=== PATIENT | male | born 1930 | race Caucasian/White ===

== ENCOUNTER 2018-08-04 15:08 | Emergency (ER) | payer MEDICARE, BC ==
[~2018-08-04] VITALS: Ht 162.6 cm; Wt 77.1 kg
[2018-08-04] MEDS ORDERED: TRAZODONE (15:17)
[2018-08-04] MEDS ORDERED: SERTRALINE (15:17)
[2018-08-04] MEDS ORDERED: DEPAKOTE (15:17)
[2018-08-04] MEDS ORDERED: SIMVASTATIN (15:17)
[2018-08-04] MEDS ORDERED: LIDOCAINE 1%-EPI 1:100,000 20 ML VIAL TP ONE (15:30)
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
--- NOTE | 2018-08-04 17:32 | NUR ---
Patient discharged to home in stable conditon. Written and verbal after care instructions given. Patient verbalizes understanding of instructions. ALL BELONGINGS W/ PT. PT SELF-AMBULATED W/O DIFFICULTY.
[2018-08-04 17:33] VITALS: BP 116/62
== END 2018-08-04 17:34 | disposition home or self-care (01) ==
LOC: ER 15:08
DX: S01.111A Laceration without foreign body of right eyelid and periocular area, initial encounter (principal); E78.5 Hyperlipidemia, unspecified; Z95.0 Presence of cardiac pacemaker; Z79.899 Other long term (current) drug therapy; W01.198A Fall on same level from slipping, tripping and stumbling with subsequent striking against other object, initial encounter; Y93.89 Activity, other specified; Y92.89 Other specified places as the place of occurrence of the external cause; Y99.8 Other external cause status
CPT/HCPCS: 12011; 70450; 72125; 99284; J3490; A4217; A4663

== ENCOUNTER 2020-08-23 16:19 | Inpatient (IN) | payer MEDICARE, BC ==
[~2020-08-23] VITALS: Ht 167.6 cm; Wt 68.0 kg
[~2020-08-23 16:19] MED LIST: DEPAKOTE PO; SERTRALINE PO; SIMVASTATIN; TRAZODONE
--- NOTE | 2020-08-23 16:40 | NUR ---
No information about current home medications available.
[2020-08-23 16:57] LABS: BASOPHILS % (AUTO) 0.4 % (0.0-2.0); EOSINOPHILS % (AUTO) 0.4 % (0.0-7.0); HEMATOCRIT 29.5 % (36.7-47.1); HEMOGLOBIN 9.8 g/dL (12.5-16.3); LYMPHOCYTES # (AUTO) 1.2 K/uL (20.0-40.0); MEAN CORPUSCULAR HEMOGLOBIN 34.7 uug (23.8-33.4); MEAN CORPUSCULAR HGB CONC 33 g/dL (32.5-36.3); MEAN CORPUSCULAR VOLUME 104.6 fL (73.0-96.2); MONOCYTES # (AUTO) 0.6 K/uL (2.0-10.0); MONOCYTES % (AUTO) 7.8 % (0.0-11.0); NEUTROPHILS # (AUTO) 6.1 K/uL (1.8-8.9); NEUTROPHILS % (AUTO) 76.4 % (38.5-71.5); PLATELET COUNT (AUTO) 146 K/uL (152-348); RED BLOOD CELL COUNT(AUTO) 2.82 MIL/uL (4.06-5.63)
[2020-08-23 17:06] LABS: CARBON DIOXIDE 27 mmol/L (21-32); CHLORIDE 105 mmol/L (98-107); CREATININE 1.2 mg/dL (0.6-1.3); GLUCOSE 90 mg/dL (74-106); POTASSIUM 4.2 mmol/L (3.5-5.1); UREA NITROGEN, BLOOD 39 mg/dL (7-18)
[2020-08-23 17:12] LABS: ALANINE AMINOTRANSFERASE 14 U/L (16-63); ALKALINE PHOSPHATASE 46 U/L (50-136); ASPARTATE AMINOTRANSFERASE 20 U/L (15-37); BILIRUBIN,DIRECT 0.1 mg/dL (0.0-0.2); BILIRUBIN,TOTAL 0.5 mg/dL (0.2-1.0); CREATINE KINASE, TOTAL 100 U/L (39-308); TOTAL PROTEIN, SERUM 7.4 g/dL (6.4-8.2)
[2020-08-23 17:13] LABS: ACETAMINOPHEN < 2.0 ug/mL (10-30)
[2020-08-23 17:16] LABS: THYROID STIMULATING HORMONE 3.567 mIU/mL (0.358-3.740)
[2020-08-23 17:17] LABS: ETHANOL < 3 MG/DL (0-0)
--- NOTE | 2020-08-23 18:52 | NUR ---
urine sent to Lab
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
[2020-08-23 19:18] LABS: *BILIRUBIN,URIN NEGATIVE (NEGATIVE); *BLOOD, URINE NEGATIVE (NEGATIVE); *CLARITY,URINE CLEAR (CLEAR); *COLOR,URINE YELLOW (YELLOW); *KETONES,URINE 1+ (NEGATIVE); *UROBILINOGEN,URINE 0.2 E.U./dl (NORMAL); LEUKOCYTE ESTERASE ,URINE NEGATIVE (NEGATIVE); NITRITE, URINE NEGATIVE (NEGATIVE); PH,URINE 5.5 (5.0-8.0); UGLUCOSE NEGATIVE (NEGATIVE)
[2020-08-23 19:28] LABS: *AMPHETAMINE, URINE NEGATIVE (NEGATIVE); *CANNABINOID, URINE NEGATIVE (NEGATIVE); *COCCAINE, URINE NEGATIVE (NEGATIVE); *OPIATE, URINE POSITIVE (NEGATIVE); *PHENCYCLIDINE SCREEN,URINE NEGATIVE (NEGATIVE)
[2020-08-23 19:29] LABS: BACTERIA,URINE NONE SEEN /HPF (NONE SEEN); RBC,URINE 0-3 /HPF (0-3); SQUAMOUS EPITHELIAL CELL,UR NONE SEEN /HPF (NONE SEEN)
--- NOTE | 2020-08-23 19:30 | NUR ---
First call made to give report
[2020-08-23] MEDS ORDERED: MAG HYDROX/AL HYDROX/SIMETH 30 ML LIQUID UDC PO PRN (20:45)
[2020-08-23] MEDS ORDERED: ACETAMINOPHEN 325 MG TABLET PO PRN (20:45)
[2020-08-23] MEDS ORDERED: BLOOD SUGAR DIAGNOSTIC 1 EACH STRIP VI ONE (20:45)
[2020-08-23] MEDS ORDERED: ZOLPIDEM 5 MG TABLET PO PRN (20:45)
[2020-08-23] MEDS ORDERED: MAGNESIUM HYDROXIDE 30 ML LIQUID UDC PO PRN (20:45)
[2020-08-23] MEDS ORDERED: QUETIAPINE FUMARATE 25 MG TABLET PO PRN (20:45)
--- NOTE | 2020-08-23 20:46 | NUR ---
Patient transferred to Room 137-B via gurney in stable condition under the care of Nurse Cary. Belongings with patient. Record given.
[2020-08-23 20:54] VITALS: BP 152/58
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
[2020-08-23] MEDS ORDERED: LEVO50TA8 PO (22:12)
[2020-08-23] MEDS ORDERED: TAMS-3 PO (22:12)
[2020-08-23] MEDS ORDERED: HYDR-3972 PO (22:12)
[2020-08-24 07:30] VITALS: BP 155/66
[2020-08-24] MEDS ORDERED: LEVOTHYROXINE SODIUM 50 MCG TABLET PO SCH (07:30)
[2020-08-24 15:32] VITALS: BP 173/79
[2020-08-24] MEDS: HYDROCODONE/APAP 5-325MG TABLET PO PRN (15:56)
[2020-08-24 18:17] VITALS: BP 124/81
[2020-08-24 19:55] VITALS: BP 149/62
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
[2020-08-24] MEDS: MELATONIN 3 MG TABLET PO SCH (21:23)
[2020-08-24] MEDS: TAMSULOSIN HCL 0.4 MG CAP.SR.24H PO SCH (21:23)
[2020-08-24] MEDS: LORAZEPAM 1 MG TABLET PO PRN (23:18)
[2020-08-25] MEDS: LEVOTHYROXINE SODIUM 50 MCG TABLET PO SCH (06:18)
--- NOTE | 2020-08-25 07:00 | NUR ---
pt slept for approx 6 hrs through the night. will continue to monitor.
[2020-08-25 07:30] VITALS: BP 157/84
[2020-08-25] MEDS: SERTRALINE HCL 50 MG TABLET PO SCH (08:32)
[2020-08-25] MEDS: HYDROCODONE/APAP 5-325MG TABLET PO PRN (14:31)
[2020-08-25 15:02] VITALS: BP 161/73
--- NOTE | 2020-08-25 15:18 | NUR ---
KRYSTA Initial Discharge Plan: Patient currently resides at home [address], [place] [address], however he was recently discharged from [facility] [address] [place] [address] ([phone]) where he was for 3 months. Patient would like to return to [facility] if possible or to a new SNF placement. KRYSTA will continue to work with patient and MD to ensure a safe and proper discharge plan.
--- NOTE | 2020-08-25 15:20 | NUR ---
Firearms Report: Internal Medicine Physician Assistant completed and submitted a DOJ firearms report for 5150 grave disability and danger to self certifications. A copy of report has been placed in patient chart.
--- NOTE | 2020-08-25 15:21 | NUR ---
KRYSTA Neighbor Contact: KRYSTA spoke with patient's neighbor, Hector Campa ([phone]) who provided collateral information. Hector stated that he has known the patient for several years and has been helping the patient with various things such as buying him food and taking him to his doctor's appointments. Hector stated that recently the patient was in [facility] and he his house is no longer in a livable state.
--- NOTE | 2020-08-25 15:26 | NUR ---
KRYSTA SMART Team Contact: KRYSTA spoke with Malena ([phone]) clinician from the SMART team [employer] who was requested a confirmation of the DOJ firearms report being filed. This SW stated that we filed it and it is up in their system.
--- NOTE | 2020-08-25 15:31 | NUR ---
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
[2020-08-25 18:57] VITALS: BP 147/79
[2020-08-25 20:08] VITALS: BP 144/72
[2020-08-25] MEDS: TAMSULOSIN HCL 0.4 MG CAP.SR.24H PO SCH (20:26)
[2020-08-25] MEDS: MELATONIN 3 MG TABLET PO SCH (20:26)
[2020-08-26] MEDS: HYDROCODONE/APAP 5-325MG TABLET PO PRN ×2 (02:14→19:32)
[2020-08-26] MEDS: LEVOTHYROXINE SODIUM 50 MCG TABLET PO SCH (06:24)
[2020-08-26 07:30] VITALS: BP 146/63
[2020-08-26] MEDS: SERTRALINE HCL 50 MG TABLET PO SCH (08:20)
--- NOTE | 2020-08-26 09:04 | NUR ---
KRYSTA Individual Counseling: SW met with patient today to provide brief individual counseling and address patient's presenting problem of suicidal ideation. SW helped patient gain insight into his presenting problem and assessed patient's level of suicidality. Patient minimized his suicidal ideation with plan and intent upon admission. Patient states "Oh I just said something very stupid". Patient presents calm and cooperative. Patient appears somewhat disorganized and repetitive with his questions. SW oriented patient to reality and helped patient accept his present reality. SW will continue to remain available for patient for ongoing support.
[2020-08-26] MEDS: MUPIROCIN 2% OINT 22 GM TUBE NS SCH ×2 (09:48→20:18)
[2020-08-26 15:22] VITALS: BP 134/67
[2020-08-26 20:00] VITALS: BP 150/62
[2020-08-26] MEDS: TAMSULOSIN HCL 0.4 MG CAP.SR.24H PO SCH (20:17)
[2020-08-26] MEDS: MELATONIN 3 MG TABLET PO SCH (20:18)
[2020-08-27] MEDS: HYDROCODONE/APAP 5-325MG TABLET PO PRN (05:11)
[2020-08-27] MEDS: LEVOTHYROXINE SODIUM 50 MCG TABLET PO SCH (06:03)
[2020-08-27 07:20] LABS: BASOPHILS % (AUTO) 0.6 % (0.0-2.0); EOSINOPHILS # (AUTO) 0.1 K/uL (0.0-0.7); EOSINOPHILS % (AUTO) 1.7 % (0.0-7.0); HEMATOCRIT 30.8 % (36.7-47.1); HEMOGLOBIN 10.2 g/dL (12.5-16.3); LYMPHOCYTES # (AUTO) 1.5 K/uL (20.0-40.0); LYMPHOCYTES % (AUTO) 19.3 % (20.5-51.5); MEAN CORPUSCULAR HEMOGLOBIN 34.6 uug (23.8-33.4); MEAN CORPUSCULAR HGB CONC 33 g/dL (32.5-36.3); MEAN CORPUSCULAR VOLUME 104.6 fL (73.0-96.2); MONOCYTES # (AUTO) 0.6 K/uL (2.0-10.0); MONOCYTES % (AUTO) 7.6 % (0.0-11.0); NEUTROPHILS # (AUTO) 5.5 K/uL (1.8-8.9); NEUTROPHILS % (AUTO) 70.8 % (38.5-71.5); PLATELET COUNT (AUTO) 141 K/uL (152-348); RED BLOOD CELL COUNT(AUTO) 2.95 MIL/uL (4.06-5.63); WHITE BLOOD COUNT (AUTO) 7.8 K/uL (3.6-10.2)
[2020-08-27 07:30] VITALS: BP 148/78
--- NOTE | 2020-08-27 07:30 | NUR ---
Received report from OMAR Manjarrez. All questions, comments, and concerns were addressed. Received patient resting quietly in his assigned bed, bed is in low and locked position.
[2020-08-27] MEDS: SERTRALINE HCL 50 MG TABLET PO SCH (08:50)
[2020-08-27] MEDS: MUPIROCIN 2% OINT 22 GM TUBE NS SCH ×2 (08:56→20:19)
[2020-08-27 09:09] LABS: CREATININE 1.2 mg/dL (0.6-1.3); MAGNESIUM 2.2 mg/dL (1.8-2.4); PHOSPHOROUS 3.6 mg/dL (2.5-4.9); POTASSIUM 4.1 mmol/L (3.5-5.1)
--- NOTE | 2020-08-27 10:56 | NUR ---
patient is alert and oriented x3. he is needy, intrusive, and has poor boundaries with staff and other patients, but is redirectable with reality orientation and redirection. patient is adherent with medication, no adverse reaction noted. patient denies SI/HI, denies AH/VH. he is preoccupied and paranoid with his room mate. patient is able to tolerate food and fluids. able to ambulate independently with a front wheel walker and perform self care and ADL's. patient is encouraged to participate in the unit therapeutic milieu and groups. educated about impulse control.
--- NOTE | 2020-08-27 13:10 | NUR ---
KRYSTA SNF Referral: KRYSTA faxed patient's referral packet for review and placement at [facility] (fax: [phone]) attention to Mimi Nathan. Addendum: 08/28/20 at 1201 by JERSON JUAN Patient did not get accepted to facility for placement.
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
--- NOTE | 2020-08-27 15:41 | NUR ---
KRYSTA APS Contact: SW contacted APS medical social consultant Jodi Lugo ([phone]) and left a voicemail to call this inspector automatic typewriter back to discuss patient's case.
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
[2020-08-27 16:25] VITALS: BP 111/67
--- NOTE | 2020-08-27 18:41 | NUR ---
patient is intrusive, needy, and inappropriately focused on his financial matters. he believes that he will be evicted from his home and all his money and assets taken away while he is on this unit. patient provided with reality orientation and redirection. provided with education about coping mechanisms for anxiety.
[2020-08-27] MEDS: MELATONIN 3 MG TABLET PO SCH (20:19)
[2020-08-27] MEDS: TAMSULOSIN HCL 0.4 MG CAP.SR.24H PO SCH (20:19)
[2020-08-27 20:23] VITALS: BP 109/52
[2020-08-28] MEDS: LEVOTHYROXINE SODIUM 50 MCG TABLET PO SCH (06:04)
--- NOTE | 2020-08-28 06:33 | NUR ---
GPS: Pt.slept for 3.15 last night. Remains anxious,needy and easily irritable. Safe environment provided. Re-assured prn. Will continue to monitor.
[2020-08-28 07:30] VITALS: BP 149/86
[2020-08-28] MEDS: SERTRALINE HCL 50 MG TABLET PO SCH (09:13)
[2020-08-28] MEDS: MUPIROCIN 2% OINT 22 GM TUBE NS SCH ×2 (09:15→20:18)
--- NOTE | 2020-08-28 12:02 | NUR ---
KRYSTA SNF Referral: KRYSTA faxed patient's referral packet for review and placement at [facility] attention to Silvia (fax: [phone]) Addendum: 08/28/20 at 1318 by JERSON JUAN Patient is accepted for placement.
[2020-08-28] MEDS: HYDROCODONE/APAP 5-325MG TABLET PO PRN (12:22)
[2020-08-28 16:00] VITALS: BP 109/68
[2020-08-28] MEDS: MELATONIN 3 MG TABLET PO SCH (20:18)
[2020-08-28] MEDS: QUETIAPINE FUMARATE 25 MG TABLET PO SCH (20:18)
[2020-08-28] MEDS: TAMSULOSIN HCL 0.4 MG CAP.SR.24H PO SCH (20:18)
[2020-08-28 20:20] VITALS: BP 104/52
[2020-08-29] MEDS: LEVOTHYROXINE SODIUM 50 MCG TABLET PO SCH (06:05)
[2020-08-29 07:30] VITALS: BP 143/74
[2020-08-29] MEDS: SERTRALINE HCL 50 MG TABLET PO SCH (09:15)
[2020-08-29] MEDS: MUPIROCIN 2% OINT 22 GM TUBE NS SCH ×2 (09:21→20:37)
--- NOTE | 2020-08-29 10:38 | NUR ---
KRYSTA PC Hearing: Patient had 5250 probable cause hearing today and it was upheld for grave disability.
[2020-08-29 16:32] VITALS: BP 144/77
[2020-08-29 20:04] VITALS: BP 136/76
[2020-08-29] MEDS: QUETIAPINE FUMARATE 25 MG TABLET PO SCH (20:36)
[2020-08-29] MEDS: MELATONIN 3 MG TABLET PO SCH (20:36)
[2020-08-29] MEDS: TAMSULOSIN HCL 0.4 MG CAP.SR.24H PO SCH (20:36)
[2020-08-29] MEDS: HYDROCODONE/APAP 5-325MG TABLET PO PRN (21:36)
[2020-08-30] MEDS: LEVOTHYROXINE SODIUM 50 MCG TABLET PO SCH (06:18)
[2020-08-30] MEDS: HYDROCODONE/APAP 5-325MG TABLET PO PRN ×3 (06:19→22:15)
--- NOTE | 2020-08-30 06:29 | NUR ---
PATIENT ALERT ORIENTED, HAS EPISODE OF COMPLAINING OF PAIN ON ADITHYA LEG, MEDICATED ORDERED. PATIENT COOPERATIVE WITH MEDICATIONS AND HAD SHOWER TODAY. PATIENT HAS EPISODE OF NEEDY BEHAVIOR, ATTEND ALL NEEDS.
[2020-08-30 07:30] VITALS: BP 130/61
[2020-08-30] MEDS: SERTRALINE HCL 50 MG TABLET PO SCH (09:43)
[2020-08-30] MEDS: MUPIROCIN 2% OINT 22 GM TUBE NS SCH ×2 (09:47→20:32)
[2020-08-30 11:36] LABS: BASOPHILS # (AUTO) 0.1 K/uL (0.0-8.0); BASOPHILS % (AUTO) 1.4 % (0.0-2.0); EOSINOPHILS # (AUTO) 0.1 K/uL (0.0-0.7); EOSINOPHILS % (AUTO) 2.1 % (0.0-7.0); HEMATOCRIT 31.3 % (36.7-47.1); HEMOGLOBIN 10.6 g/dL (12.5-16.3); LYMPHOCYTES # (AUTO) 1.7 K/uL (20.0-40.0); LYMPHOCYTES % (AUTO) 26.8 % (20.5-51.5); MEAN CORPUSCULAR HEMOGLOBIN 35.5 uug (23.8-33.4); MEAN CORPUSCULAR HGB CONC 34 g/dL (32.5-36.3); MEAN CORPUSCULAR VOLUME 105.1 fL (73.0-96.2); MONOCYTES # (AUTO) 0.7 K/uL (2.0-10.0); MONOCYTES % (AUTO) 10.2 % (0.0-11.0); NEUTROPHILS # (AUTO) 3.8 K/uL (1.8-8.9); NEUTROPHILS % (AUTO) 59.5 % (38.5-71.5); RED BLOOD CELL COUNT(AUTO) 2.98 MIL/uL (4.06-5.63); WHITE BLOOD COUNT (AUTO) 6.4 K/uL (3.6-10.2)
[2020-08-30 11:48] LABS: ALANINE AMINOTRANSFERASE 23 U/L (16-63); ALKALINE PHOSPHATASE 56 U/L (50-136); ASPARTATE AMINOTRANSFERASE 20 U/L (15-37); BILIRUBIN,TOTAL 0.3 mg/dL (0.2-1.0); CARBON DIOXIDE 28 mmol/L (21-32); CHLORIDE 101 mmol/L (98-107); CREATININE 1.5 mg/dL (0.6-1.3); GLUCOSE 115 mg/dL (74-106); MAGNESIUM 2.3 mg/dL (1.8-2.4); POTASSIUM 4.4 mmol/L (3.5-5.1); TOTAL PROTEIN, SERUM 8.2 g/dL (6.4-8.2); UREA NITROGEN, BLOOD 59 mg/dL (7-18)
[2020-08-30 12:13] LABS: PLATELET COUNT (AUTO) 231 K/uL (152-348)
--- NOTE | 2020-08-30 13:00 | NUR ---
Gps/tip out worker-Came out of his room, diaper w/ his diaper falling down, assisted to the bathroom , removed diaper, c/o . constipation, no bm for 3 days per patient, MOM 30 ml given po, as well as prune juice x 2 give. tried to review w/ patient pain meds. can give constipation, patient does not want to listen, kept talking out loud, not given staff chance to talk . Patient jumping from one topic to another, gets angry and irritable when being redirected. Easily gets anxious, argumentative, too focus in his urination, urgency,frequency, and incontinence noted. , assisted with his hygiene
[2020-08-30 14:37] LABS: *BILIRUBIN,URIN NEGATIVE (NEGATIVE); *BLOOD, URINE NEGATIVE (NEGATIVE); *CLARITY,URINE CLEAR (CLEAR); *COLOR,URINE YELLOW (YELLOW); *KETONES,URINE NEGATIVE (NEGATIVE); *UROBILINOGEN,URINE 0.2 E.U./dl (NORMAL); LEUKOCYTE ESTERASE ,URINE NEGATIVE (NEGATIVE); NITRITE, URINE NEGATIVE (NEGATIVE); UGLUCOSE NEGATIVE (NEGATIVE)
[2020-08-30] MEDS ORDERED: BISACODYL 10 MG SUPP.RECT RC PRN (15:00)
[2020-08-30 16:00] VITALS: BP 156/91
--- NOTE | 2020-08-30 18:03 | NUR ---
Gps/Delivery Professional- stayed in the dinning room during lunch , interacting fairly with his peers. , claimed he's feeling a lot better. remains with freq. voiding, and urgency, urinal placed with in reach when in bed. Adequate relief from his pain. Had Bowel movement , resulted from MOM 30 ml this pm. Adequate fluid intake.
[2020-08-30 20:11] VITALS: BP 108/65
[2020-08-30] MEDS: MELATONIN 3 MG TABLET PO SCH (20:32)
[2020-08-30] MEDS: TAMSULOSIN HCL 0.4 MG CAP.SR.24H PO SCH (20:32)
[2020-08-30] MEDS: QUETIAPINE FUMARATE 25 MG TABLET PO SCH (20:32)
[2020-08-30] MEDS: LORAZEPAM 1 MG TABLET PO PRN (22:15)
--- NOTE | 2020-08-31 02:50 | NUR ---
STAFF HEARD LOUD SOUND AND CAME TO SEE PT ON TOP OF THE BATHROOM DOOR WHICH IS HELD ON BY MAGNET AND MADE OF FOAM. FORTUNATELY HE LANDED ON HIS BOTTOM AND ON TOP OF THE SOFT FOAM PORTION OF THE DOOR AND HAD NO COMPLAINTS OF PAIN POST FALL. WITH ASSISTANCE PT WAS HELPED BACK TO BED AND INSTRUCTED TO USE URINAL WHEN NEEDING TO VOID. BEDLOCKED AND IN LOWEST POSITION. BED ALARM IS ON AND ACTIVATED. TOOK VITAL SIGNS AND ARE STABLE. PT IN NO ACUTE DISTRESS. WILL NOTIFY DR MANAGER SUPPLY CHAIN. STNA AWARE. WILL CONTINUE TO MONITOR FOR SAFETY.
--- NOTE | 2020-08-31 02:51 | NUR ---
DID HEAD TO TOE ASSESSMENT ON THE PT . DID NEUROCHECKS. LEVEL OF CONSCIOUSNESS IS THE SAME. PUPILS REACTIVE. PT ORIENTED TO NAME AND PLACE. SPEECH IS NORMAL. NORMAL MOTOR, SENSORY AND DEEP TENDON REFLEX. WILL CONTINUE TO MONITOR.
[2020-08-31 02:52] VITALS: BP 150/76
--- NOTE | 2020-08-31 02:53 | NUR ---
CALLED [facility] FOR DR AIRCRAFT MAINTENANCE DIRECTOR TO NOTIFY PT FELL. AWAITING FOR CALL BACK.
[2020-08-31] MEDS: LEVOTHYROXINE SODIUM 50 MCG TABLET PO SCH (06:02)
--- NOTE | 2020-08-31 06:26 | NUR ---
DR SPENCE NOTIFIED REGARDING FALL OF THE PT. ORDERED TO MONITOR THE PT. DO NEUROCHECKS. IF ANY ABNORMAL SIGNS DO CTA. CHARGE NURSE AWARE. WILL ENDORSE TO INCOMING NURSE.
--- NOTE | 2020-08-31 06:32 | NUR ---
PT SLEPT 4.30 H. PT IN NO ACUTE DISTRESS. PT VITAL SIGNS STABLE. PRESCRIBED MEDICATION GIVEN AND PT TOLERATED IT WELL.PT GIVEN NORCO AT 2215H FOR PAIN AND ATIVAN AT 2215H FOR AGITATION AND RESTLESSNESS. PT TOLERATED IT WELL. AFTER AN HOUR PT IS CALMER AND RESTING ON HIS BED. PT HAD EPISODES OF CONFUSION AND NEEDS REORIENTATION AND REDIRECTION. AT 0250H PT FELL. UNWITNESS FALL. CEMENT CRUSHER OPERATOR NOTIFIED. DID NEUROCHECK ON THE PT. PT RESPOSIVE AND STABLE. POSTFALL PROTOCOL OBSERVED. SAFETY AND COMFORT PROVIDED. ALL NEEDS ARE MET. WILL ENDORSE TO INCOMING NURSE FOR CONTINUITY OF CARE.
[2020-08-31 07:30] VITALS: BP 130/73
[2020-08-31] MEDS: MUPIROCIN 2% OINT 22 GM TUBE NS SCH ×2 (10:34→21:09)
[2020-08-31] MEDS: SERTRALINE HCL 50 MG TABLET PO SCH (10:34)
[2020-08-31 16:00] VITALS: BP 134/74
[2020-08-31 19:59] VITALS: BP 115/65
[2020-08-31] MEDS: QUETIAPINE FUMARATE 25 MG TABLET PO SCH (20:19)
[2020-08-31] MEDS: MELATONIN 3 MG TABLET PO SCH (20:19)
[2020-08-31] MEDS: TAMSULOSIN HCL 0.4 MG CAP.SR.24H PO SCH (20:19)
[2020-08-31] MEDS: HYDROCODONE/APAP 5-325MG TABLET PO PRN (21:08)
[2020-09-01] MEDS: HYDROCODONE/APAP 5-325MG TABLET PO PRN (06:19)
[2020-09-01] MEDS: LEVOTHYROXINE SODIUM 50 MCG TABLET PO SCH (06:19)
--- NOTE | 2020-09-01 07:06 | NUR ---
PATIENT ALERT STAY IN HIS ROOM MOST OF THE NIGHT, CONT ON PAIN MANAGEMENT DUE R LEG PAIN/CRAMPS. PATIENT SLEPT 2 HRS, USES URINAL AND GOES TO BATHROOM FOR BLADDER ELIMINATION. PATIENT WET HIS BED, REFUSED TO WEAR DIAPER, WILL CONT TO ASSIST WITH TOILETING, KEPT CLEAN AND DRY.
[2020-09-01 07:47] LABS: CARBON DIOXIDE 26 mmol/L (21-32); CHLORIDE 104 mmol/L (98-107); CREATININE 1.4 mg/dL (0.6-1.3); GLUCOSE 93 mg/dL (74-106); MAGNESIUM 2.4 mg/dL (1.8-2.4); PHOSPHOROUS 4.1 mg/dL (2.5-4.9); POTASSIUM 4.5 mmol/L (3.5-5.1); UREA NITROGEN, BLOOD 55 mg/dL (7-18)
[2020-09-01] MEDS ORDERED: MELATONIN 3 MG TABLET PO PRN (08:45)
[2020-09-01] MEDS: MUPIROCIN 2% OINT 22 GM TUBE NS SCH ×2 (09:29→20:27)
[2020-09-01] MEDS: SERTRALINE HCL 50 MG TABLET PO SCH (09:29)
[2020-09-01 15:43] VITALS: BP 139/72
[2020-09-01 19:30] VITALS: BP 103/63
[2020-09-01] MEDS: QUETIAPINE FUMARATE 25 MG TABLET PO SCH (20:27)
[2020-09-01] MEDS: TAMSULOSIN HCL 0.4 MG CAP.SR.24H PO SCH (20:27)
[2020-09-01] MEDS: DIVALPROEX ER 500 MG TAB.SR.24H PO SCH (20:28)
[2020-09-02] MEDS: LORAZEPAM 1 MG TABLET PO PRN (02:22)
--- NOTE | 2020-09-02 05:39 | NUR ---
Shift End Report: Slept 4.30 hours. Awakened at 0222, kind of agitated, uncooperative, trying to get out of bed. Placed in Frieda chair and stayed in the [address] the rest of the shift after giving Ativan medication which is very effective. No significant event reported all night. Continue care as planned.VS stable.
[2020-09-02] MEDS: LEVOTHYROXINE SODIUM 50 MCG TABLET PO SCH (06:06)
[2020-09-02 07:30] VITALS: BP 138/83
--- NOTE | 2020-09-02 07:30 | NUR ---
Patient received in Frieda chair in the hallway. Patient is calm and cooperative. No distress noted. Patient denies any SI/GLASGOW at this time. Safety and suicide precautions are in place. Will continue to monitor.
[2020-09-02] MEDS: SERTRALINE HCL 50 MG TABLET PO SCH (08:24)
[2020-09-02 15:22] VITALS: BP 109/59
--- NOTE | 2020-09-02 18:18 | NUR ---
Patient has been very calm and cooperative throughout shift. Patient has been compliant with medications. At times he is forgetful. No SI/GLASGOW reported. Safety precautions are in place. Will endorse to next shift.
[2020-09-02 20:07] VITALS: BP 128/64
[2020-09-02] MEDS: DIVALPROEX ER 500 MG TAB.SR.24H PO SCH (20:41)
[2020-09-02] MEDS: TAMSULOSIN HCL 0.4 MG CAP.SR.24H PO SCH (20:41)
[2020-09-02] MEDS: QUETIAPINE FUMARATE 25 MG TABLET PO SCH (20:42)
[2020-09-03 00:22] LABS: *BILIRUBIN,URIN NEGATIVE (NEGATIVE); *BLOOD, URINE NEGATIVE (NEGATIVE); *CLARITY,URINE CLEAR (CLEAR); *COLOR,URINE YELLOW (YELLOW); *KETONES,URINE NEGATIVE (NEGATIVE); *UROBILINOGEN,URINE 0.2 E.U./dl (NORMAL); LEUKOCYTE ESTERASE ,URINE NEGATIVE (NEGATIVE); NITRITE, URINE NEGATIVE (NEGATIVE); UGLUCOSE NEGATIVE (NEGATIVE)
[2020-09-03 00:34] LABS: *CREATININE,URINE 30.7 mg/dL (30-125)
--- NOTE | 2020-09-03 01:22 | NUR ---
RECEIVED PATIENT IN A CRISTINO CHAIR IN THE HALLWAY.INITIALLY CALM BUT LATER BECAME REPETITIVE, AND FORGETFUL. HE BECOMES IRRITABLE WHEN RE DIRECTED. HIS MOOD IS LABILE. HE DENIED SI/HI. SAID THAT WAS ONLY IN THE INITIAL STAGES. COMPLIANT WITH MEDICATIONS AND COOPERATIVE WITH STAFF FOR HIS CARE. VISUAL CHECKS MADE ON HIM FOR SAFETY AND BED IN LOW POSITION. WILL CONTINUE TO MONITOR.
--- NOTE | 2020-09-03 05:56 | NUR ---
SLEPT FOR 3;15 HOURS. REPOSITIONED NEEDED.MADE CLEAN AND COMFORTABLE IN BED.
[2020-09-03] MEDS: LEVOTHYROXINE SODIUM 50 MCG TABLET PO SCH (06:16)
[2020-09-03 07:30] VITALS: BP 142/75
[2020-09-03] MEDS: SERTRALINE HCL 50 MG TABLET PO SCH (09:46)
--- NOTE | 2020-09-03 09:48 | NUR ---
KRYSTA SNF Contact/Psych Clearance: KRYSTA spoke with Silvia personnel coordinator at [facility] ([phone]; fax [phone]) who requested a Psychiatric Clearance from the psychiatrist prior to the patient being discharged. Dr. Austin signed the psychiatric clearance letter and this social media assistant faxed it to Silvia. The original clearance has been placed in the patient's chart.
--- NOTE | 2020-09-03 10:38 | NUR ---
KRYSTA SMART Team/ [employer] Contact: KRYSTA spoke with Malena ([phone]) clinician from the SMART team and First Line Production Supervisor Bush from [employer] (badge #[id number]) and provided them with the discharge plan information for the patient [place] [address] [facility] [address] ([phone]).
--- NOTE | 2020-09-03 10:40 | NUR ---
SW APS Contact: KRYSTA contacted APS health care social worker Jodi Lugo ([phone]) and left a voicemail to call this SW back.
[2020-09-03 16:00] VITALS: BP 114/70
--- NOTE | 2020-09-03 19:50 | NUR ---
Received patient in chair, calm and cooperative but later patient became irritable. Patient assisted to the toilet for bladder and bowel elimination. Patient has poor safety awareness, he become irritable when redirected about safety. Patient constantly talk, refused to follow instruction, he gets irritated when orientated about safety. kept clean and dry.
[2020-09-03 20:19] VITALS: BP 170/66
[2020-09-03] MEDS: TAMSULOSIN HCL 0.4 MG CAP.SR.24H PO SCH (20:52)
[2020-09-03] MEDS: MELATONIN 3 MG TABLET PO SCH (20:52)
[2020-09-03] MEDS: QUETIAPINE FUMARATE 25 MG TABLET PO SCH (20:52)
[2020-09-03] MEDS: DIVALPROEX ER 500 MG TAB.SR.24H PO SCH (20:53)
--- NOTE | 2020-09-03 20:53 | NUR ---
depakote 500mg medication enter manually, medication bar un scannable.
--- NOTE | 2020-09-04 05:44 | NUR ---
Patient asleep but arousable, slept for 6.45 hrs. Patient calms at this time, cooperative with care, cont to monitor.
[2020-09-04] MEDS: LEVOTHYROXINE SODIUM 50 MCG TABLET PO SCH (06:15)
[2020-09-04 07:30] VITALS: BP 120/75
[2020-09-04] MEDS: SERTRALINE HCL 50 MG TABLET PO SCH (08:21)
[2020-09-04 09:34] LABS: CREATININE 1.2 mg/dL (0.6-1.3); POTASSIUM 4.5 mmol/L (3.5-5.1)
--- NOTE | 2020-09-04 12:44 | NUR ---
Gps/Weed Cutter- Hyperverbal , wants staff to listen to his topics, and verbalizations, kept repeating the same conversations. Needed redirections most of the time. Stayed in his wheel chair, attended his group therapy.Remains with frequent and urgency in urination.
--- NOTE | 2020-09-04 13:15 | NUR ---
Gps/Hr Systems Analyst- Noted > coughing during his lunch , encouraged and instructed to sit upright , during meals, patient 's noted in reclining position, encouraged to drinks and eat slowly .
[2020-09-04 16:27] VITALS: BP 95/55
[2020-09-04 20:04] VITALS: BP 104/51
[2020-09-04] MEDS: QUETIAPINE FUMARATE 25 MG TABLET PO SCH (20:37)
[2020-09-04] MEDS: TAMSULOSIN HCL 0.4 MG CAP.SR.24H PO SCH (20:37)
[2020-09-04] MEDS: MELATONIN 3 MG TABLET PO SCH (20:38)
[2020-09-04] MEDS ORDERED: DIVALPROEX ER 500 MG TAB.SR.24H PO SCH (21:00)
--- NOTE | 2020-09-04 21:13 | NUR ---
Received patient in [facility] in the [facility]. Calm and cooperative. Compliant with meds. No signs of agitation or restlessness noted. Encourage to take fluids, patient compliant. No behavioral issues noted so far. Will monitor patient.VSS.
[2020-09-05] MEDS: LEVOTHYROXINE SODIUM 50 MCG TABLET PO SCH (06:02)
--- NOTE | 2020-09-05 06:08 | NUR ---
End of shift notes: Quiet night. Slept at short intervals. Had 3 hours of sleep. Incontinent of urine x2. Kept clean and dry. No agitation nor any periods of restlessness noted. VSS.Will monitor patient.
[2020-09-05 07:30] VITALS: BP 132/72
[2020-09-05] MEDS: SERTRALINE HCL 50 MG TABLET PO SCH (08:50)
[2020-09-05] MEDS ORDERED: DIVALPROEX ER 250 MG TAB.SR.24H PO SCH (10:43)
--- NOTE | 2020-09-05 12:23 | NUR ---
EARLY ENTRY FOR 09/06/20 DISCHARGE NOTE: Patient will be discharged to [facility] [address] [facility] [address] ([phone]). Patient will be provided ambulance transportation at 11AM. SW spoke with Silvia student admissions clerk at the facility ([phone]) who confirmed patient is accepted at facility. Patient is aware and agreeable with discharge plan. Patient is alert and oriented x4, is unable to plan for self-care, however, is willing to accept care at [facility]. Patient denies any suicidal or homicidal ideation. Patient will follow-up at the facility with Dr. Austin Psychiatrist and Dr. Martínez Creative Intern. Patient presents with euthymic mood and congruent affect. Patient does not have any family contact to notify at this time.
[2020-09-05 16:09] VITALS: BP 108/59
--- NOTE | 2020-09-05 17:53 | NUR ---
patient been paranoid and cursing the service writer, patient redirected and offered activity, patient verbalizes " let see who the doctor believes you or me, Im Bipolar", "Adrian Reed is bipolar ", patient threatening and cursing the service writer, report to nurse incharge for intervention, will continue monitor
[2020-09-05] MEDS: LORAZEPAM 1 MG TABLET PO PRN (18:04)
[2020-09-05 20:17] VITALS: BP 109/57
[2020-09-05] MEDS: QUETIAPINE FUMARATE 25 MG TABLET PO SCH (20:22)
[2020-09-05] MEDS: TAMSULOSIN HCL 0.4 MG CAP.SR.24H PO SCH (20:22)
[2020-09-05] MEDS: MELATONIN 3 MG TABLET PO SCH (20:22)
--- NOTE | 2020-09-06 05:59 | NUR ---
Patient received AOX2 in the hallway in chair, no distress noted. Patient denies SI at this time. Plan to discharge today to [facility]. Patient slept a total of 5.30 hours. Very pleasant and calm demeanor with this junior copywriter. Safety precautions kept in place throughout the shift. Shower was provided to patient this morning with assistance. No other issues or concerns at this time, will endorse to day shift.
[2020-09-06] MEDS: LEVOTHYROXINE SODIUM 50 MCG TABLET PO SCH (06:27)
[2020-09-06 07:30] VITALS: BP 114/69
--- NOTE | 2020-09-06 07:30 | NUR ---
received report from KYUNG Nunez. All questions, comments, and concerns were addressed. received patient asleep in chair. respirations are even and unlabored.
[2020-09-06] MEDS: SERTRALINE HCL 50 MG TABLET PO SCH (08:02)
--- NOTE | 2020-09-06 13:20 | NUR ---
DISCHARGE NOTE: Patient discharged to [facility]. He was picked up by nonemergency ambulance. Patient's belongings and valuables inventoried with patient and returned. Patient provided with discharge plan and instructions, education about follow up care with psychiatrist, and instructed to continue taking his medications as prescribed. Patient is able to verbalize understanding. Patient denies suicidal and homicidal ideation. Patient is alert and oriented but confused, requires redirection and reality orientation to situation.
== END 2020-09-06 13:15 | DRG 885 ==
LOC: ER 16:22 → GPS 19:43
PROVIDERS: ADMIT Psychiatry & Neurology Psychiatry; ATTEND Internal Medicine
PROC: 0HBRXZZ Excision of Toe Nail, External Approach (ICD-10-PCS; principal; 2020-08-25)
DX: F31.64 Bipolar disorder, current episode mixed, severe, with psychotic features (principal); N17.0 Acute kidney failure with tubular necrosis; D68.69 Other thrombophilia; F23 Brief psychotic disorder; F03.91 Unspecified dementia, unspecified severity, with behavioral disturbance; E78.5 Hyperlipidemia, unspecified; E03.9 Hypothyroidism, unspecified; D50.9 Iron deficiency anemia, unspecified; F41.9 Anxiety disorder, unspecified; M19.90 Unspecified osteoarthritis, unspecified site; N40.0 Benign prostatic hyperplasia without lower urinary tract symptoms; Z73.6 Limitation of activities due to disability; M62.81 Muscle weakness (generalized); Z20.822 Contact with and (suspected) exposure to COVID-19; L60.3 Nail dystrophy; M79.672 Pain in left foot; M79.671 Pain in right foot; N27.0 Small kidney, unilateral; I10 Essential (primary) hypertension
CPT/HCPCS: 36415; 71045; 71046; 76770; 80164; 83735; 84100; 84156; 84300; 84443; 85025; 87086; 93005; A4663; G0480